=== PATIENT | male | born 1940 | race Caucasian/White ===

== ENCOUNTER 2021-05-01 11:13 | Emergency (ER) | payer MEDICARE, OTHER ==
[2021-05-01] MEDS ORDERED: Orphenadrine 60 MG/2 ML Inj IM ONE (12:10)
[2021-05-01] MEDS ORDERED: traMADol 50 MG Tab PO ONE (12:10)
--- NOTE | 2021-05-01 12:16 | EDM.PDOC ---
ED HPI GENERAL MEDICAL PROBLEM - General Chief Complaint: Back Pain or Injury Stated Complaint: IN BY AMBULANCE Time Seen by Provider: 05/01/21 12:00 Source of Information: Reports: Patient, RN, RN Notes Reviewed History Limitations: Reports: No Limitations - History of Present Illness INITIAL COMMENTS - FREE TEXT/NARRATIVE: Benigno is an 81 y/o male who presents to the ED via [facility] with complaints of right low back pain. The patient reports he sustained a fall from ground level last night when he tripped in his yard. He felt no pain in his back immediately following the fall, but noticed soreness this morning when getting out of bed early this morning to urinate. He attempted to get out of bed again later in the morning and was unable to do so due to sharp stabbing right back pain. He notes the pain is localized to the back and does not radiate. He denies weakness of his lower extremities, saddle paraesthesia, inability to void, or incontinence of bowel/bladder. He has taken no medications for his symptoms. right low back Pain Score (Numeric/FACES): 10 - Related Data Allergies Allergy/AdvReac Type Severity Reaction Status Date / Time niacin Allergy Itching Verified 05/01/21 11:42 [From Niaspan Extended-Release] Home Meds: Home Meds Aspirin [Ecotrin] 81 mg PO DAILY 08/08/18 [History] Glucosam/Chondr/Collagn/Hyalur [Glucosamine & Chondroitin Cap] 1 tab PO BID 08/08/18 [History] Insulin Glargine,Hum.Rec.Anlog [Basaglar Kwikpen U-100] 40 units INJECT BEDTIME 08/08/18 [History] Losartan [Cozaar] 25 mg PO DAILY 08/08/18 [History] Multivitamin [Multiple Vitamins] 1 tab PO DAILY 08/08/18 [History] Omeprazole 20 mg PO DAILY 08/08/18 [History] Sertraline [Zoloft] 50 mg PO DAILY 08/08/18 [History] Sildenafil [Revatio] 50 - 100 mg PO ASDIRECTED PRN 08/08/18 [History] atorvaSTATin [Lipitor] 20 mg PO DAILY 08/08/18 [History] glipiZIDE [Glucotrol Xl] 2.5 mg PO DAILY 08/08/18 [History] hydroCHLOROthiazide [Hydrochlorothiazide] 25 mg PO DAILY 08/08/18 [History] metFORMIN HCl [Metformin HCl] 1,000 mg PO BID 08/08/18 [History] Semaglutide [Ozempic] 1 mg SQ Q7D 05/01/21 [History] Past Medical History HEENT History: Reports: Impaired Vision Other HEENT History: WEARS CORRECTIVE LENS Cardiovascular History: Reports: CAD, High Cholesterol, Hypertension Respiratory History: Reports: Sleep Apnea Gastrointestinal History: Reports: Colon Polyp Genitourinary History: Reports: None Musculoskeletal History: Reports: None Neurological History: Reports: None Psychiatric History: Reports: Anxiety Endocrine/Metabolic History: Reports: Diabetes, Type II, Obesity/BMI 30+ Hematologic History: Reports: None Immunologic History: Reports: None Oncologic (Cancer) History: Reports: None Dermatologic History: Reports: None - Infectious Disease History Infectious Disease History: Reports: Chicken Pox, Measles, Mumps, Shingles - Past Surgical History Head Surgeries/Procedures: Reports: None HEENT Surgical History: Reports: None Cardiovascular Surgical History: Reports: Carotid Endarterectomy Respiratory Surgical History: Reports: None GI Surgical History: Reports: Colonoscopy, Polypectomy Male Surgical History: Reports: None Endocrine Surgical History: Reports: None Neurological Surgical History: Reports: None Musculoskeletal Surgical History: Reports: Other (See Below) Other Musculoskeletal Surgeries/Procedures:: rotator cuff repair BILAT Oncologic Surgical History: Reports: None Dermatological Surgical History: Reports: None Social & Family History - Family History Family Medical History: No Pertinent Family History - Tobacco Use Tobacco Use Status *Q: Never Tobacco User Second Hand Smoke Exposure: No - Caffeine Use Caffeine Use: Reports: Coffee Caffeine Use Comment: 24oz - Recreational Drug Use Recreational Drug Use: No ED ROS GENERAL - Review of Systems Review Of Systems: Comprehensive ROS is negative, except as noted in HPI. ED EXAM, UPPER BACK/NECK PAIN - Physical Exam Exam: See Below Exam Limited By: No Limitations General Appearance: Alert, Mild Distress (Pain to back), Obese Eye Exam: Bilateral Eye: EOMI, Normal Inspection, PERRL (3mm) Ears Exam: Normal External Exam, Hearing Grossly Normal Nose Exam: Normal Inspection, Normal Mucousa, No Blood Throat/Mouth Exam: Normal Inspection, Normal Lips, Normal Teeth, Normal Gums, Normal Oropharynx, Normal Voice, No Airway Compromise Head Exam: Atraumatic, Normocephalic Neck Exam: Non-Tender, Full Range of Motion, Normal Alignment, Normal Inspection, Other (No cervical point tenderness or pain with rotation, extension, or flexion of neck). No: Stiff Neck, Tenderness, Tender Lateral, Tender Midline Nexus Criteria: No: Posterior, Midline Cervical Tenderness, Evidence of Intoxication, Altered Level of Consciousness, Focal Neurological Deficit, Painful Distraction Injuries Cardiovascular/Respiratory: Regular Rate, Rhythm, No M/R/G, Normal Peripheral Pulses, No JVD, Normal Breath Sounds, No Respiratory Distress GI/Abdominal: Normal Bowel Sounds, Soft, Non-Tender, No Distention, No Abnormal Bruit, No Mass, Pelvis Stable (Male) Exam: Deferred Rectal (Males) Exam: Deferred Back Exam: Decreased Range of Motion (Due to pain), Muscle Spasm. No: Paraspinal Tenderness, Vertebral Tenderness Extremities: Normal Inspection, Normal Range of Motion, Non-Tender, No Pedal Edema, Normal Capillary Refill Neurologic: tube winder hand II-XII nml As Tested, No Motor/Sensory Deficits, Alert, Normal Mood/Affect, Oriented x 3 Psychiatric: Normal Affect, Normal Mood Skin Exam: Normal Color, Warm/Dry Lymphatic: No Adenopathy Course - Vital Signs Last Recorded V/S: Last Vital Signs Temp 98.7 F 05/01/21 11:10 Pulse 107 H 05/01/21 11:10 Resp 21 H 05/01/21 11:10 BP 161/85 H 05/01/21 11:10 Pulse Ox 95 05/01/21 11:10 - Orders/Labs/Meds Orders: Active Orders 24 hr Category Date Time Status CULTURE URINE [RM] Stat Lab 05/01/21 14:08 Received Labs: Laboratory Tests 05/01/21 05/01/21 Range/Units 11:22 14:08 POC Glucose 213 H (70-99) mg/dL Urine Color Yellow (YELLOW) Urine Appearance Clear (CLEAR) Urine pH 6.5 (5.0-9.0) Ur Specific Valliant 1.015 (1.005-1.030) Urine Protein Trace H (NEGATIVE) Urine Glucose (UA) Negative (NEGATIVE) Urine Ketones Negative (NEGATIVE) Urine Occult Blood Trace-intact H (NEGATIVE) Urine Nitrite Negative (NEGATIVE) Urine Bilirubin Negative (NEGATIVE) Urine Urobilinogen 0.2 (0.2-1.0) mg/dL Ur Leukocyte Esterase Small H (NEGATIVE) Urine RBC 0-5 /HPF Urine WBC 0-5 (0-5/HPF) /HPF Ur Epithelial Cells Rare (NOT SEEN) /HPF Urine Bacteria Rare (0-FEW/HPF) /HPF Granular Casts (Auto) Few Urine Other Meds: Medications Discontinued Medications Generic Name Dose Route Start Last Admin Trade Name Chelsy PRN Reason Stop Dose Admin Hydrocodone Bitart/Acetaminophen 1 tab 05/01/21 13:41 05/01/21 14:01 Acetaminophen/Hydrocodone 325-5 Mg Tab PO 05/01/21 13:42 1 tab ONETIME ONE Administration Orphenadrine Citrate 60 mg 05/01/21 12:10 05/01/21 12:18 Orphenadrine 60 Mg/2 Ml Inj IM 05/01/21 12:11 60 mg ONETIME ONE Administration Tramadol HCl 50 mg 05/01/21 12:10 05/01/21 12:18 Tramadol 50 Mg Tab PO 05/01/21 12:11 50 mg ONETIME ONE Administration - Radiology Interpretation Free Text/Narrative:: [facility] Final Radiology Report Call: [phone] assistance Online chat: [email or web address] Name: BENIGNO MCINTOSH Age: 81Years M Date: 05/01/2021 SSN: -- : [id number] Study: CR LUMBAR SPINE 2 OR 3V Requesting Physician: Angela Vigil Images: 2 Addl Studies: Provided Clinical History: Fall last night; Right back pain with movement Contrast: Contrast Medium: Contrast Amount: Contrast Method: CONFIDENTIALITY STATEMENT This report is intended only for use by the referring physician, and only in accordance with law. If you received this in error, call [phone]. Page 1 of 1 PROCEDURE INFORMATION: Exam: XR Lumbosacral Spine Exam date and time: 05/01/2021 12:25 PM Age: 81 years old Clinical indication: Low back pain; Additional info: Fall last night; Right back pain with movement TECHNIQUE: Imaging protocol: XR of the lumbosacral spine. Views: 2 or 3 views. COMPARISON: No relevant prior studies available. FINDINGS: Bones/joints: Mild anterior wedge compression deformity of T12. Lumbar vertebra are unremarkable. Soft tissues: Unremarkable. Vasculature: Aorta heavily calcified. IMPRESSION: Possible acute T12 compression fracture. Thank you for allowing us to participate in the care of your patient. Dictated and Authenticated by: Jose Willis MD 05/01/2021 1:14 PM Central Time ([place] & [place]) - Re-Assessments/Exams Free Text/Narrative Re-Assessment/Exam: 05/01/21 Orphenadrine IM and Ultram administered. Xray of lumbar spine obtained. UA sent. Patient verbalized minimal improvement in pain following medication administration. Hydrocodone-acetaminophen 5-325mg administered. Findings of examination, lab work, and imaging reviewed with patient. Will treat acute pain from T12 compression fracture with Jenkins. Patient instructed to follow up with primary care provider and PT; referral written. Discussed supportive cares for back pain. Red flag signs and symptoms which would warrant reevaluation reviewed. Patient verbalized understanding and agreement with the plan of care Departure - Departure Time of Disposition: 15:18 Disposition: Home, Self-Care 01 Condition: Fair Clinical Impression: Muscle spasm of back, Fall from ground level Compression fracture of T12 vertebra Qualifiers: Encounter type: initial encounter Qualified Code(s): S22.080A - Wedge compression fracture of T11-T12 vertebra, initial encounter for closed fracture - Discharge Information *PRESCRIPTION DRUG MONITORING PROGRAM REVIEWED*: Not Applicable *COPY OF PRESCRIPTION DRUG MONITORING REPORT IN PATIENT JUDAH: Not Applicable Instructions: Thoracic Spine Fracture, Muscle Strain, [id number] Forms: ED Department Discharge Additional Instructions: Rx: hydrocodone-acetaminophen 1.) Follow up with primary care provider Monday or Monday regarding today's visit. 2.) Follow up with physical therapy for evaluation and treatment; referral sent with you today. 3.) You may alternate ice and heat to the lower back as pain and swelling persist. 4.) You may take ibuprofen (Advil/Motrin) 400mg every six hours, as pain and swelling persists. You may also take an additional acetaminophen (Tylenol) 325mg every six hours with your prescribed pain medication as pain persists. You may stagger these medications so you are receiving a dose every three hours. 5.) You may apply Biofreeze/Bengay to painful areas, per bottle instructions. Sepsis Event Note (ED) - Evaluation Sepsis Screening Result: No Definite Risk - Focused Exam Vital Signs: Vital Signs Temp Pulse Resp BP Pulse Ox 05/01/21 11:10 98.7 F 107 H 21 H 161/85 H 95 - My Orders Last 24 Hours: My Active Orders 05/01/21 14:08 CULTURE URINE [] Stat - Assessment/Plan Last 24 Hours: My Active Orders 05/01/21 14:08 CULTURE URINE [] Stat
--- NOTE | 2021-05-01 13:15 | CR ---
PROCEDURE INFORMATION: Exam: XR Lumbosacral Spine Exam date and time: 05/01/2021 12:25 PM Age: 81 years old Clinical indication: Low back pain; Additional info: Fall last night; Right back pain with movement TECHNIQUE: Imaging protocol: XR of the lumbosacral spine. Views: 2 or 3 views. COMPARISON: No relevant prior studies available. FINDINGS: Bones/joints: Mild anterior wedge compression deformity of T12. Lumbar vertebra are unremarkable. Soft tissues: Unremarkable. Vasculature: Aorta heavily calcified. IMPRESSION: Possible acute T12 compression fracture.
[2021-05-01] MEDS ORDERED: Acetaminophen/HYDROcodone 325-5 MG Tab PO ONE (13:41)
== END 2021-05-01 15:36 | disposition home or self-care (01) ==
LOC: DL.ED 11:13
DX: S22.089A Unspecified fracture of T11-T12 vertebra, initial encounter for closed fracture (principal); M62.830 Muscle spasm of back; I25.10 Atherosclerotic heart disease of native coronary artery without angina pectoris; E78.00 Pure hypercholesterolemia, unspecified; I10 Essential (primary) hypertension; E11.9 Type 2 diabetes mellitus without complications; E66.9 Obesity, unspecified; Z68.32 Body mass index [BMI] 32.0-32.9, adult; Z88.1 Allergy status to other antibiotic agents; Z79.82 Long term (current) use of aspirin; Z79.4 Long term (current) use of insulin; Z79.899 Other long term (current) drug therapy; W01.0XXA Fall on same level from slipping, tripping and stumbling without subsequent striking against object, initial encounter; Y92.096 Garden or yard of other non-institutional residence as the place of occurrence of the external cause
CPT/HCPCS: 72100; 81001; 82947; 87086; 96372; 99284; A9270; J2360

== ENCOUNTER 2021-05-04 08:38 | Emergency (ER) | payer MEDICARE, OTHER ==
--- NOTE | 2021-05-04 09:09 | EDM.PDOC ---
"ED HPI GENERAL MEDICAL PROBLEM - General Chief Complaint: Abdominal Pain Stated Complaint: [id number] BACK PAIN Time Seen by Provider: 05/04/21 09:06 Source of Information: Reports: Patient, Old Records, Provider (Dr. Clemente), RN, RN Notes Reviewed History Limitations: Reports: No Limitations - History of Present Illness INITIAL COMMENTS - FREE TEXT/NARRATIVE: Pt sent to ER by Dr. Clemente via POV with c/o abdominal pain, bloating, and constipation. Last BM 5-6 days ago. Pt was seen in ER on 05/01/21 with a T12 compression fracture and began taking Hydrocodone which caused constipation. Today Dr. Clemente became concerned about a possible SOB based on Hx and exam and asked the pt to come to the ER for further evaluation. Pt admits to nausea. He rates the pain 8/10. Nothing aggravates or alleviates the pain. Onset: Gradual Duration: Constant, Getting Worse Location: Reports: Abdomen Quality: Reports: Ache, Pressure Severity: Severe Improves with: Reports: None Worsens with: Reports: None Associated Symptoms: Reports: No Other Symptoms - Related Data Allergies Allergy/AdvReac Type Severity Reaction Status Date / Time niacin Allergy Itching Verified 05/01/21 11:42 [From Niaspan Extended-Release] Home Meds: Home Meds Aspirin [Ecotrin] 81 mg PO DAILY 08/08/18 [History] Glucosam/Chondr/Collagn/Hyalur [Glucosamine & Chondroitin Cap] 1 tab PO BID 08/08/18 [History] Insulin Glargine,Hum.Rec.Anlog [Basaglar Kwikpen U-100] 40 units INJECT BEDTIME 08/08/18 [History] Losartan [Cozaar] 25 mg PO DAILY 08/08/18 [History] Multivitamin [Multiple Vitamins] 1 tab PO DAILY 08/08/18 [History] Omeprazole 20 mg PO DAILY 08/08/18 [History] Sertraline [Zoloft] 50 mg PO DAILY 08/08/18 [History] Sildenafil [Revatio] 50 - 100 mg PO ASDIRECTED PRN 08/08/18 [History] atorvaSTATin [Lipitor] 20 mg PO DAILY 08/08/18 [History] glipiZIDE [Glucotrol Xl] 2.5 mg PO DAILY 08/08/18 [History] hydroCHLOROthiazide [Hydrochlorothiazide] 25 mg PO DAILY 08/08/18 [History] metFORMIN HCl [Metformin HCl] 1,000 mg PO BID 08/08/18 [History] Semaglutide [Ozempic] 1 mg SQ Q7D 05/01/21 [History] Acetaminophen [Tylenol Extra Strength] 500 mg PO Q4H PRN 05/04/21 [History] Hydrocodone/Acetaminophen [HYDROcodone-Acetaminophen 5-325 MG] 1 tab PO Q6H PRN 05/04/21 [History] Past Medical History HEENT History: Reports: Impaired Vision Other HEENT History: WEARS CORRECTIVE LENS Cardiovascular History: Reports: CAD, High Cholesterol, Hypertension Respiratory History: Reports: Sleep Apnea Gastrointestinal History: Reports: None, Colon Polyp Genitourinary History: Reports: None Musculoskeletal History: Reports: Fracture (T12 compression fracture) Neurological History: Reports: None Psychiatric History: Reports: Anxiety Endocrine/Metabolic History: Reports: Diabetes, Type II, Obesity/BMI 30+ Hematologic History: Reports: None Immunologic History: Reports: None Oncologic (Cancer) History: Reports: None Dermatologic History: Reports: None - Infectious Disease History Infectious Disease History: Reports: Chicken Pox, Measles, Mumps, Shingles - Past Surgical History Head Surgeries/Procedures: Reports: None HEENT Surgical History: Reports: None Cardiovascular Surgical History: Reports: Carotid Endarterectomy Respiratory Surgical History: Reports: None GI Surgical History: Reports: Colonoscopy, Polypectomy Male Surgical History: Reports: None Endocrine Surgical History: Reports: None Neurological Surgical History: Reports: None Musculoskeletal Surgical History: Reports: Other (See Below) Other Musculoskeletal Surgeries/Procedures:: rotator cuff repair BILAT Oncologic Surgical History: Reports: None Dermatological Surgical History: Reports: None Social & Family History - Family History Family Medical History: No Pertinent Family History - Caffeine Use Caffeine Use: Reports: Coffee Caffeine Use Comment: 24oz ED ROS GENERAL - Review of Systems Review Of Systems: Comprehensive ROS is negative, except as noted in HPI. ED EXAM, GI/ABD - Physical Exam Exam: See Below Exam Limited By: No Limitations General Appearance: Alert, WD/WN, No Apparent Distress, Other (Uncomfortable, but non-toxic appearing) Eyes: Bilateral: Normal Appearance (No scleral icterus) Throat/Mouth: Normal Voice, No Airway Compromise Head: Atraumatic, Normocephalic Respiratory/Chest: No Respiratory Distress, Lungs Clear, Normal Breath Sounds, No Accessory Muscle Use, Chest Non-Tender Cardiovascular: Regular Rate, Rhythm, No Edema GI/Abdominal Exam: Normal Bowel Sounds, Distended (Mildly), Tender (Generalized, no peritoneal signs). No: Guarding, Rigid, Rebound (Male) Exam: Deferred Rectal (Males) Exam: Deferred Back Exam: Decreased Range of Motion, Vertebral Tenderness (Overlying T12 region) Extremities: Normal Inspection Neurological: Alert, Oriented, No Motor/Sensory Deficits Psychiatric: Normal Mood Skin Exam: Warm, Dry, Intact, Normal Color, No Rash Course - Vital Signs Last Recorded V/S: Last Vital Signs Temp 98.2 F 05/04/21 13:30 Pulse 90 05/04/21 15:00 Resp 20 05/04/21 15:00 BP 150/75 H 05/04/21 15:00 Pulse Ox 90 L 05/04/21 15:00 - Orders/Labs/Meds Orders: Active Orders 24 hr Category Date Time Status Enema [RC] ASDIRECTED Care 05/04/21 10:57 Active Peripheral IV Care [RC] . DIRECTED Care 05/04/21 09:10 Active Sodium Chloride 0.9% [Saline Flush] Med 05/04/21 09:09 Active 10 ml FLUSH ASDIRECTED PRN Peripheral IV Insertion Adult [OM.PC] Stat Oth 05/04/21 09:10 Ordered Medication Orders Sodium Chloride (Sodium Chloride 0.9% 10 Ml Syringe) 10 ml FLUSH ASDIRECTED PRN PRN Reason: Keep Vein Open Last Admin: 05/04/21 12:32 Dose: 10 ml Documented by: Admin: 05/04/21 09:45 Dose: 10 ml Documented by: KATLYN Labs: Laboratory Tests 05/04/21 05/04/21 05/04/21 Range/Units 09:17 09:17 09:17 WBC 9.6 (5.0-10.0) 10^3/uL RBC 4.74 (4.6-6.2) 10^6/uL Hgb 14.6 (14.0-18.0) g/dL Hct 43.2 (40.0-54.0) % MCV 91.1 (80-100) fL MCH 30.8 (27.0-34.0) pg MCHC 33.8 (33.0-35.0) g/dL Plt Count 200 (150-450) 10^3/uL Neut % (Auto) 73.7 (42.2-75.2) % Lymph % (Auto) 13.9 L (20.5-50.1) % Stephens % (Auto) 10.7 H (2-8) % Eos % (Auto) 1.5 (1.0-3.0) % Baso % (Auto) 0.2 (0.0-1.0) % Sodium 134 L (136-145) mmol/L Potassium 4.1 (3.5-5.1) mmol/L Chloride 98 (98-107) mmol/L Carbon Dioxide 24 (21-32) mmol/L Anion Gap 16.1 H (7-13) mEq/L BUN 21 H (7-18) mg/dL Creatinine 1.19 (0.70-1.30) mg/dL Est Cr Clr Drug Dosing TNP Estimated GFR (MDRD) 59 BUN/Creatinine Ratio 17.6 (No establ ref range) Glucose 143 H (70-99) mg/dL Lactic Acid 1.0 (0.4-2.0) mmol/L Calcium 9.0 (8.5-10.1) mg/dL Total Bilirubin 1.0 (0.2-1.0) mg/dL AST 29 (15-37) U/L ALT 31 (16-63) U/L Alkaline Phosphatase 122 H (46-116) U/L Total Protein 7.1 (6.4-8.2) g/dL Albumin 3.3 L (3.4-5.0) g/dL Globulin 3.8 Albumin/Globulin Ratio 0.87 Amylase 26 (25-115) U/L Meds: Medications Generic Name Dose Route Start Last Admin Trade Name Freq PRN Reason Stop Dose Admin Sodium Chloride 10 ml 05/04/21 09:09 05/04/21 12:32 Sodium Chloride 0.9% 10 Ml Syringe FLUSH 10 ml ASDIRECTED PRN Administration Keep Vein Open Discontinued Medications Generic Name Dose Route Start Last Admin Trade Name Freq PRN Reason Stop Dose Admin Bisacodyl 10 mg 05/04/21 10:56 05/04/21 12:33 Bisacodyl 5 Mg Tab PO 05/04/21 10:57 10 mg ONETIME ONE Administration Hydromorphone HCl 0.5 mg 05/04/21 11:41 05/04/21 12:19 Hydromorphone 0.5 Mg/0.5 Ml Syringe IVPUSH 05/04/21 11:42 0.5 mg ONETIME ONE Administration Sodium Chloride 1,000 mls @ 999 mls/hr 05/04/21 09:11 05/04/21 09:42 Normal Saline IV 05/04/21 10:11 999 mls/hr .BOLUS ONE Administration Iopamidol 100 ml 05/04/21 09:50 05/04/21 10:12 Iopamidol 612 Mg/Ml 100 Ml Bottle IVPUSH 05/04/21 09:51 100 ml ONETIME ONE Administration Ketorolac Tromethamine 15 mg 05/04/21 11:41 05/04/21 12:23 Ketorolac 30 Mg/Ml Sdv IVPUSH 05/04/21 11:42 15 mg ONETIME ONE Administration Lactulose 40 gm 05/04/21 10:57 05/04/21 12:17 Lactulose Soln 10 Gm/15 Ml 30 Ml Ud Cup PO 05/04/21 10:58 40 gm ONETIME ONE Administration Lidocaine HCl 30 gm 05/04/21 11:41 05/04/21 12:52 Lidocaine 5% Oint 35.44 Gm Tube TOP 05/04/21 11:42 30 gm ONETIME ONE Administration Ondansetron HCl 4 mg 05/04/21 09:32 05/04/21 09:44 Ondansetron 4 Mg/2 Ml Sdv IV 05/04/21 09:33 4 mg ONETIME ONE Administration Ondansetron HCl 4 mg 05/04/21 10:57 05/04/21 12:28 Ondansetron 4 Mg/2 Ml Sdv IV 05/04/21 10:58 4 mg ONETIME ONE Administration - Radiology Interpretation Free Text/Narrative:: [facility] Final Radiology Report Call: [phone] assistance Online chat: [email or web address] Name: HOLLAND MCINTOSH Age: 81Years M Date: 05/04/2021 SSN: -- : [id number] Study: CT ABDOMEN PELVIS W CONT Requesting Physician: ELKE JOHN Images: [id number] Addl Studies: Provided Clinical History: Abdominal pain, constipation, r/o obstruction Contrast: With Contrast Medium: Isovue 300 Contrast Amount: 100 mL Contrast Method: Intravenous (IV) Page 1 of 2 PROCEDURE INFORMATION: Exam: CT Abdomen And Pelvis With Contrast Exam date and time: 05/04/2021 10:09 AM Age: 81 years old Clinical indication: Abdominal pain; Generalized; Additional info: Abdominal pain, constipation, R/O obstruction TECHNIQUE: Imaging protocol: Computed tomography of the abdomen and pelvis with contrast. Radiation optimization: All CT scans at this facility use at least one of these dose optimization techniques: automated exposure control; mA and/or kV adjustment per patient size (includes targeted exams where dose is matched to clinical indication); or iterative reconstruction. Contrast material: ISOVUE 300; Contrast volume: 100 ml; Contrast route: INTRAVENOUS (IV); COMPARISON: CR Lumbar Spine 2 or 3V 05/01/2021 12:25 PM FINDINGS: Lungs: Dependent atelectasis in the lung bases. Changes of emphysema. Liver: Diffuse fatty infiltration of the liver. Gallbladder and bile ducts: Normal. No calcified stones. No ductal dilation. Pancreas: Normal. No ductal dilation. Spleen: Normal. No splenomegaly. Adrenal glands: Normal. No mass. Kidneys and ureters: Normal. No hydronephrosis. Stomach and bowel: Unremarkable. No obstruction. No mucosal thickening. Appendix: No evidence of appendicitis. Intraperitoneal space: Unremarkable. No free air. No significant fluid collection. HOLLAND MCINTOSH | Final Radiology Report CONFIDENTIALITY STATEMENT This report is intended only for use by the referring physician, and only in accordance with law. If you received this in error, call [phone]. Page 2 of 2 Vasculature: Diffuse vascular calcifications. Ectatic infrarenal abdominal aorta. Aneurysmal dilatation of the bilateral common iliac arteries measuring approximately 2 cm on the right and 2 cm on the left. Lymph nodes: Unremarkable. No enlarged lymph nodes. Urinary bladder: Mild thickening of the wall of the urinary bladder could be due to chronic cystitis. Reproductive: Prostatic enlargement. Prostatic calcifications. Bones/joints: The bones are demineralized. Acute or subacute mild benign appearing compression fracture T12 vertebral body.. 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 Soft tissues: Unremarkable. IMPRESSION: 1. Acute or subacute mild benign appearing compression fracture of T12 vertebral body 2. Dependent atelectasis and emphysema in the lung bases 3. 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 4. Mild thickening of the wall the urinary bladder could be due to chronic cystitis Thank you for allowing us to participate in the care of your patient. Dictated and Authenticated by: Yudy Ramon MD 05/04/2021 10:53 AM Central Time ([place] & [place]) Departure - Departure Time of Disposition: 15:43 Disposition: Home, Self-Care 01 Condition: Good Clinical Impression: COPD not affecting current episode of care Constipation Qualifiers: Constipation type: drug induced constipation Qualified Code(s): K59.03 - Drug induced constipation Compression fracture of T12 vertebra Qualifiers: Encounter type: subsequent encounter Fracture healing: with routine healing Qualified Code(s): S22.080D - Wedge compression fracture of T11-T12 vertebra, subsequent encounter for fracture with routine healing - Discharge Information *PRESCRIPTION DRUG MONITORING PROGRAM REVIEWED*: No *COPY OF PRESCRIPTION DRUG MONITORING REPORT IN PATIENT JUDAH: No Instructions: Constipation, Adult, [id number], Pain Medicine Instructions, [id number] Forms: ED Department Discharge Additional Instructions: Rx: Lactulose Syrup Rx: Albuterol Inhaler Rx: Hydrocodone Use an over the counter stool softener while taking pain medications. Follow up with Dr. Clemente in 3 to 5 days. Sepsis Event Note (ED) - Focused Exam Vital Signs: Vital Signs Temp Pulse Resp BP Pulse Ox 05/04/21 15:00 90 20 150/75 H 90 L 05/04/21 13:30 98.2 F 88 20 132/54 L 93 L 05/04/21 13:07 92 L 05/04/21 08:44 97.1 F 88 16 153/93 H 96 - My Orders Last 24 Hours: My Active Orders 05/04/21 09:09 Sodium Chloride 0.9% [Saline Flush] 10 ml FLUSH ASDIRECTED PRN 05/04/21 09:10 Peripheral IV Care [RC] . DIRECTED Peripheral IV Insertion Adult [OM.PC] Stat 05/04/21 10:57 Enema [RC] ASDIRECTED - Assessment/Plan Last 24 Hours: My Active Orders 05/04/21 09:09 Sodium Chloride 0.9% [Saline Flush] 10 ml FLUSH ASDIRECTED PRN 05/04/21 09:10 Peripheral IV Care [RC] . DIRECTED Peripheral IV Insertion Adult [OM.PC] Stat 05/04/21 10:57 Enema [RC] ASDIRECTED"
[2021-05-04] MEDS ORDERED: Sodium Chloride 0.9% 1,000 ML IV ONE (09:11)
[2021-05-04] MEDS ORDERED: Ondansetron 4 MG/2 ML SDV IV ONE ×2 (09:32→10:57)
[2021-05-04 09:41] LABS: ANION GAP 16.1 mEq/L (7-13); CHLORIDE,CL 98 mmol/L (98-107); SODIUM,NA 134 mmol/L (136-145)
[2021-05-04] MEDS: Sodium Chloride 0.9% 10 ML Syringe FLUSH PRN ×2 (09:45→12:32)
[2021-05-04] MEDS ORDERED: Iopamidol 612 MG/ML 100 ML Bottle IVPUSH ONE (09:50)
--- NOTE | 2021-05-04 10:53 | CT ---
PROCEDURE INFORMATION: Exam: CT Abdomen And Pelvis With Contrast Exam date and time: 05/04/2021 10:09 AM Age: 81 years old Clinical indication: Abdominal pain; Generalized; Additional info: Abdominal pain, constipation, R/O obstruction TECHNIQUE: Imaging protocol: Computed tomography of the abdomen and pelvis with contrast. Radiation optimization: All CT scans at this facility use at least one of these dose optimization techniques: automated exposure control; mA and/or kV adjustment per patient size (includes targeted exams where dose is matched to clinical indication); or iterative reconstruction. Contrast material: ISOVUE 300; Contrast volume: 100 ml; Contrast route: INTRAVENOUS (IV); COMPARISON: CR Lumbar Spine 2 or 3V 05/01/2021 12:25 PM FINDINGS: Lungs: Dependent atelectasis in the lung bases. Changes of emphysema. Liver: Diffuse fatty infiltration of the liver. Gallbladder and bile ducts: Normal. No calcified stones. No ductal dilation. Pancreas: Normal. No ductal dilation. Spleen: Normal. No splenomegaly. Adrenal glands: Normal. No mass. Kidneys and ureters: Normal. No hydronephrosis. Stomach and bowel: Unremarkable. No obstruction. No mucosal thickening. Appendix: No evidence of appendicitis. Intraperitoneal space: Unremarkable. No free air. No significant fluid collection. Vasculature: Diffuse vascular calcifications. Ectatic infrarenal abdominal aorta. Aneurysmal dilatation of the bilateral common iliac arteries measuring approximately 2 cm on the right and 2 cm on the left. Lymph nodes: Unremarkable. No enlarged lymph nodes. Urinary bladder: Mild thickening of the wall of the urinary bladder could be due to chronic cystitis. Reproductive: Prostatic enlargement. Prostatic calcifications. Bones/joints: The bones are demineralized. Acute or subacute mild benign appearing compression fracture T12 vertebral body.. 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 Soft tissues: Unremarkable. IMPRESSION: 1. Acute or subacute mild benign appearing compression fracture of T12 vertebral body 2. Dependent atelectasis and emphysema in the lung bases 3. 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 4. Mild thickening of the wall the urinary bladder could be due to chronic cystitis
[2021-05-04] MEDS ORDERED: Bisacodyl 5 MG Tab PO ONE (10:56)
[2021-05-04] MEDS ORDERED: Lactulose Soln 10 GM/15 ML 30 ML UD Cup PO ONE (10:57)
[2021-05-04] MEDS ORDERED: Ketorolac 30 MG/ML SDV IVPUSH ONE (11:41)
[2021-05-04] MEDS ORDERED: Lidocaine 5% Oint 35.44 GM Tube TOP ONE (11:41)
[2021-05-04] MEDS ORDERED: HYDROmorphone 0.5 MG/0.5 ML Syringe IVPUSH ONE (11:41)
== END 2021-05-04 15:58 | disposition home or self-care (01) ==
LOC: DL.ED 08:38
DX: K59.03 Drug induced constipation (principal); T40.2X5A Adverse effect of other opioids, initial encounter; S22.089D Unspecified fracture of T11-T12 vertebra, subsequent encounter for fracture with routine healing; J44.9 Chronic obstructive pulmonary disease, unspecified; I25.10 Atherosclerotic heart disease of native coronary artery without angina pectoris; E78.00 Pure hypercholesterolemia, unspecified; I10 Essential (primary) hypertension; E11.9 Type 2 diabetes mellitus without complications; E66.9 Obesity, unspecified; Z68.29 Body mass index [BMI] 29.0-29.9, adult; Z88.1 Allergy status to other antibiotic agents; Z79.82 Long term (current) use of aspirin; Z79.4 Long term (current) use of insulin; Z79.899 Other long term (current) drug therapy; W01.0XXD Fall on same level from slipping, tripping and stumbling without subsequent striking against object, subsequent encounter
CPT/HCPCS: 36415; 74177; 80053; 82150; 83605; 85025; 96374; 96375; 96376; 99284-25; A9270-GY; J1170; J1885; J2405; J7030; Q9967

== ENCOUNTER 2022-11-07 05:13 | Day surgery (SDC) | payer MEDICARE, OTHER ==
[~2022-11-07 05:13] MED LIST: Sodium Chloride 0.9% 10 ML Syringe FLUSH SCH
[2022-11-07] MEDS ORDERED: Midazolam 1 MG/ML 2 ML SDV IV ONE ×5 (05:14→06:34)
[2022-11-07] MEDS ORDERED: fentaNYL 100 MCG/2 ML SDV IV ONE ×3 (05:14→06:24)
[2022-11-07] MEDS ORDERED: Sodium Chloride 0.9% 10 ML Syringe FLUSH PRN (05:30)
[2022-11-07] MEDS ORDERED: Dextrose 5%-0.45% NaCl 1,000 ML IV SCH (05:30)
[2022-11-07] MEDS ORDERED: fentaNYL 100 MCG/2 ML SDV ONE (06:08)
[2022-11-07] MEDS ORDERED: Midazolam 1 MG/ML 2 ML SDV ONE (06:08)
== END 2022-11-07 08:05 | disposition home or self-care (01) ==
LOC: DL.ENDO 05:13
PROVIDERS: ATTEND Internal Medicine Gastroenterology
DX: Z12.11 Encounter for screening for malignant neoplasm of colon (principal); D12.3 Benign neoplasm of transverse colon; K57.30 Diverticulosis of large intestine without perforation or abscess without bleeding; K64.8 Other hemorrhoids; I10 Essential (primary) hypertension; E78.5 Hyperlipidemia, unspecified; E11.9 Type 2 diabetes mellitus without complications; E66.09 Other obesity due to excess calories; Z88.3 Allergy status to other anti-infective agents; Z68.31 Body mass index [BMI] 31.0-31.9, adult
CPT/HCPCS: 88305; J2250; J3010; J7042

== ENCOUNTER 2025-07-29 13:55 | Inpatient (IN) | payer MEDICARE, OTHER ==
[2025-07-29] MEDS: Nitroglycerin 0.4 MG Tab.SL SL PRN (14:31)
[2025-07-29 14:32] LABS: BASOPHILS PERCENT AUTO 0.1 % (0.0-1.0); EOSINOPHILS PERCENT AUTO 1.5 % (1.0-3.0); LYMPHOCYTES PERCENT AUTO 19.3 % (20.5-50.1); MONOCYTES PERCENT AUTO 8.3 % (2-8); NEUTROPHILS PERCENT AUTO 70.8 % (42.2-75.2); PLATELET COUNT,PLT 247 10^3/uL (150-450); RED BLOOD CELL COUNT 4.97 10^6/uL (4.6-6.2); WHITE BLOOD CELL COUNT,WBC 13.4 10^3/uL (5.0-10.0)
[2025-07-29 14:55] LABS: BLOOD UREA NITROGEN,BUN 32 mg/dL (7-18); CARBON DIOXIDE,CO2 29 mmol/L (21-32); CHLORIDE,CL 102 mmol/L (98-107); CREATININE 1.21 mg/dL (0.70-1.30); ESTIMATED GFR 58 mL/min (>=60); GLUCOSE RANDOM 107 mg/dL (70-99); POTASSIUM,K 4.0 mmol/L (3.5-5.1); SODIUM,NA 140 mmol/L (136-145)
[2025-07-29 14:56] LABS: B-TYPE NATRIURETIC PEPTIDE,BNP 173 pg/ml (0-100)
[2025-07-29] MEDS: Iopamidol 612 MG/ML 100 ML Bottle IVPUSH ONE (15:00)
[2025-07-29 15:03] LABS: INR 1.0 (0.9-1.2); PTT,PARTIAL THROMBOPLSTIN TIME 25.1 SEC (22.0-34.0)
[2025-07-29] MEDS ORDERED: Sodium Chloride 0.9% 10 ML Syringe FLUSH PRN (16:23)
[2025-07-29] MEDS ORDERED: Sennosides/Docusate Sodium 50-8.6 MG Tab PO PRN (16:23)
[2025-07-29] MEDS ORDERED: Ondansetron 4 MG/2 ML SDV IVPUSH PRN (16:23)
[2025-07-29] MEDS ORDERED: 50% Dextrose in Water 50 ML Syringe IVPUSH PRN (17:43)
[2025-07-29 18:09] LABS: T4 FREE 0.88 ng/dL (0.76-1.46); TSH ULTRASENSITIVE 5.29 uIU/mL (0.36-3.74)
[2025-07-29] MEDS: Lactulose Soln 10 GM/15 ML 30 ML UD Cup PO SCH (21:01)
[2025-07-29] MEDS ORDERED: Lactulose Soln 10 GM/15 ML 30 ML UD Cup PO PRN (21:58)
[2025-07-29] MEDS: Sodium Chloride 0.9% 10 ML Syringe FLUSH SCH (23:11)
[2025-07-30 06:39] LABS: BASOPHILS PERCENT AUTO 0.2 % (0.0-1.0); EOSINOPHILS PERCENT AUTO 2.2 % (1.0-3.0); LYMPHOCYTES PERCENT AUTO 24.9 % (20.5-50.1); MONOCYTES PERCENT AUTO 9.3 % (2-8); NEUTROPHILS PERCENT AUTO 63.4 % (42.2-75.2); PLATELET COUNT,PLT 233 10^3/uL (150-450); RED BLOOD CELL COUNT 4.45 10^6/uL (4.6-6.2); WHITE BLOOD CELL COUNT,WBC 11.3 10^3/uL (5.0-10.0)
[2025-07-30 07:08] LABS: ALANINE AMINOTRANSFERASE,ALT 26.0 U/L (16-63); ASPARTATE AMNIOTRANSFERASE,AST 15.0 U/L (15-37); BILIRUBIN TOTAL 0.6 mg/dL (0.2-1.0); BLOOD UREA NITROGEN,BUN 37.0 mg/dL (7-18); CARBON DIOXIDE,CO2 28.0 mmol/L (21-32); CHLORIDE,CL 103.0 mmol/L (98-107); CREATININE 1.29 mg/dL (0.70-1.30); EST CRCL DRUG DOSING (CG) 37.09 mL/min; GLUCOSE RANDOM 106.0 mg/dL (70-99); POTASSIUM,K 4.1 mmol/L (3.5-5.1); PROTEIN TOTAL,TP 6.0 g/dL (6.4-8.2); SODIUM,NA 139.0 mmol/L (136-145)
[2025-07-30 07:11] LABS: A/G RATIO 1.14; ESTIMATED GFR 54.0 mL/min (>=60)
[2025-07-31 06:46] LABS: BASOPHILS PERCENT AUTO 0.1 % (0.0-1.0); EOSINOPHILS PERCENT AUTO 4.1 % (1.0-3.0); LYMPHOCYTES PERCENT AUTO 25.6 % (20.5-50.1); MONOCYTES PERCENT AUTO 9.7 % (2-8); NEUTROPHILS PERCENT AUTO 60.5 % (42.2-75.2); PLATELET COUNT,PLT 212 10^3/uL (150-450); RED BLOOD CELL COUNT 4.83 10^6/uL (4.6-6.2); WHITE BLOOD CELL COUNT,WBC 10.0 10^3/uL (5.0-10.0)
[2025-07-31 07:06] LABS: A/G RATIO 1.0; ALANINE AMINOTRANSFERASE,ALT 29.0 U/L (16-63); ASPARTATE AMNIOTRANSFERASE,AST 18.0 U/L (15-37); BILIRUBIN TOTAL 0.6 mg/dL (0.2-1.0); BLOOD UREA NITROGEN,BUN 36.0 mg/dL (7-18); CARBON DIOXIDE,CO2 26.0 mmol/L (21-32); CHLORIDE,CL 102.0 mmol/L (98-107); CREATININE 1.23 mg/dL (0.70-1.30); EST CRCL DRUG DOSING (CG) 38.9 mL/min; GLUCOSE RANDOM 138.0 mg/dL (70-99); POTASSIUM,K 4.1 mmol/L (3.5-5.1); PROTEIN TOTAL,TP 6.7 g/dL (6.4-8.2); SODIUM,NA 137.0 mmol/L (136-145)
[2025-07-31 07:07] LABS: ESTIMATED GFR 57.0 mL/min (>=60)
[2025-08-01 06:32] LABS: BASOPHILS PERCENT AUTO 0.2 % (0.0-1.0); EOSINOPHILS PERCENT AUTO 4.6 % (1.0-3.0); LYMPHOCYTES PERCENT AUTO 24.2 % (20.5-50.1); MONOCYTES PERCENT AUTO 9.4 % (2-8); NEUTROPHILS PERCENT AUTO 61.6 % (42.2-75.2); PLATELET COUNT,PLT 214 10^3/uL (150-450); RED BLOOD CELL COUNT 4.48 10^6/uL (4.6-6.2); WHITE BLOOD CELL COUNT,WBC 9.3 10^3/uL (5.0-10.0)
[2025-08-01 06:52] LABS: ALANINE AMINOTRANSFERASE,ALT 30.0 U/L (16-63); ASPARTATE AMNIOTRANSFERASE,AST 14.0 U/L (15-37); BILIRUBIN TOTAL 0.4 mg/dL (0.2-1.0); BLOOD UREA NITROGEN,BUN 38.0 mg/dL (7-18); CARBON DIOXIDE,CO2 28.0 mmol/L (21-32); CHLORIDE,CL 104.0 mmol/L (98-107); CREATININE 1.4 mg/dL (0.70-1.30); EST CRCL DRUG DOSING (CG) 34.18 mL/min; GLUCOSE RANDOM 130.0 mg/dL (70-99); POTASSIUM,K 4.3 mmol/L (3.5-5.1); PROTEIN TOTAL,TP 6.2 g/dL (6.4-8.2); SODIUM,NA 139.0 mmol/L (136-145)
[2025-08-01 06:54] LABS: A/G RATIO 0.94; ESTIMATED GFR 49.0 mL/min (>=60)
[2025-08-01] MEDS: FLU (Fluad Triv) 25-26 (65UP)/MF59C/PF 45 MCG/0.5 ML Syringe IM ONE (13:15)
== END 2025-08-01 13:30 | disposition home or self-care (01) | DRG 281 ==
LOC: DL.ED 13:55 → DL.MS 16:00
PROVIDERS: ADMIT Student in an Organized Health Care Education/Training Program; ATTEND Student in an Organized Health Care Education/Training Program
DX: I21.A1 Myocardial infarction type 2 (principal); I48.92 Unspecified atrial flutter; I48.91 Unspecified atrial fibrillation; J44.9 Chronic obstructive pulmonary disease, unspecified; G47.33 Obstructive sleep apnea (adult) (pediatric); N18.9 Chronic kidney disease, unspecified; I12.9 Hypertensive chronic kidney disease with stage 1 through stage 4 chronic kidney disease, or unspecified chronic kidney disease; E03.8 Other specified hypothyroidism; F17.210 Nicotine dependence, cigarettes, uncomplicated; D72.829 Elevated white blood cell count, unspecified; G47.30 Sleep apnea, unspecified; M94.0 Chondrocostal junction syndrome [Tietze]; K59.00 Constipation, unspecified; Z95.5 Presence of coronary angioplasty implant and graft; Z88.1 Allergy status to other antibiotic agents; Z79.899 Other long term (current) drug therapy; Z79.1 Long term (current) use of non-steroidal anti-inflammatories (NSAID); Z79.82 Long term (current) use of aspirin; Z79.51 Long term (current) use of inhaled steroids; Z99.89 Dependence on other enabling machines and devices; Z71.6 Tobacco abuse counseling; Z86.0100 Personal history of colon polyps, unspecified
CPT/HCPCS: 36415; 71275; 80048; 80053; 82947; 83036; 83735; 83880; 84439; 84443; 84484; 85025; 85379; 85610; 85730; 90653; 93005; 93306; 97165-GO; 99223; 99232; 99233; 99238; 99285; A9270-GY; G0008; J1815-GY; Q9967